=== PATIENT | male | born 1995 | race Two or more races ===

== ENCOUNTER 2018-11-21 13:08 | Emergency (ER) | payer SELFPAY ==
--- NOTE | 2018-11-21 14:17 | ED ---
Throat Pain/Nasal Congestion - HPI Summary HPI Summary: Pt is a 23 y/o M presenting to the ED with a chief complaint of dental pain first onset about 1 month ago when he broke his tooth. The pt states it has been painful intermittently but the pain has increased over the last couple of days, and Tylenol has not been working. He states cold foods bother his tooth but hot foods do not, and he sometimes gets a bad taste in his mouth. He denies any fevers. They have an appt set up in a couple of weeks to get the tooth pulled, but if it is infected they will not pull it. No fever chills, no drooling The pt does not take any medications and has no known drug allergies. He smokes cigarettes very occasionally, and does not drink alcohol or use any recreational drugs. - History of Current Complaint Chief Complaint: EDDentalPain Time Seen by Provider: 11/21/18 14:07 Hx Obtained From: Patient Onset/Duration: Gradual Onset, Lasting Weeks, Still Present Severity: Moderate - Allergies/Home Medications Allergies/Adverse Reactions: Allergies Allergy/AdvReac Type Severity Reaction Status Date / Time No Known Allergies Allergy Verified 11/21/18 13:25 PMH/Surg Hx/FS Hx/Imm Hx Previously Healthy: Yes Endocrine/Hematology History: Denies: Hx Diabetes Cardiovascular History: Denies: Hx Hypertension Infectious Disease History: No Infectious Disease History: Denies: Traveled Outside the [place] in Last 30 Days - Family History Known Family History: Negative: Cardiac Disease - Social History Lives: With Family Hx Substance Use: No Substance Use Type: Reports: None Hx Tobacco Use: Yes Smoking Status (MU): Smoker, Current Status Unknown - pt smokes very occasionally Review of Systems Positive: Fever Positive: Dental Pain All Other Systems Reviewed And Are Negative: Yes Physical Exam - Summary Physical Exam Summary: Vital Signs Reviewed: Yes A+Ox3, no distress Eyes: Conjunctiva Clear ENT: Hearing grossly normal, TM x 2 clear, mmmoist no exudate dental: + large cavity with dental fracture #18 + TTP, no drainage, + mild erythema at gumline neck: supple, no LA Respiratory: Positive: No respiratory distress, No accessory muscle use Cardiovascular: skin color reflect adequate perfusion Musculoskeletal Exam: FRIAS x 4 without difficulty Neurological: Positive: Alert, ambulatory without difficulty Psychological: Positive: Normal Response To Family Skin: Positive: no rash, no ecchymosis Triage Information Reviewed: Yes Vital Signs On Initial Exam: Initial Vitals Temp Pulse Resp BP Pulse Ox 98.8 F 57 20 117/74 99 11/21/18 13:10 11/21/18 13:10 11/21/18 13:10 11/21/18 13:10 11/21/18 13:10 Vital Signs Reviewed: Yes Diagnostics - Vital Signs Vital Signs Temp Pulse Resp BP Pulse Ox 11/21/18 13:10 98.8 F 57 20 117/74 99 - Laboratory Lab Statement: Any lab studies that have been ordered have been reviewed, and results considered in the medical decision making process. EENT Course/Dx - Course Course Of Treatment: Pt presents to with dental pain. Pt broke tooth approx 2 month ago -Pt with progressive pain x 5 days - concerned infection. Will start abx, periodex, topical lidocaine, motrin/apap. pt without insurance- urgent RX given. pt referred to physician referral center. return precautions - Diagnoses Provider Diagnoses: Pain, dental Discharge - Sign-Out/Discharge Documenting (check all that apply): Patient Departure Patient Received Moderate/Deep Sedation with Procedure: No - Discharge Plan Condition: Stable Disposition: HOME Prescriptions: Amoxicillin/Clavulanate TAB* [Augmentin TAB 875*] 875 mg PO BID #20 tab Chlorhexidine Gluconate [Peridex] 15 ml SWISH SPIT Q6HR PRN #150 ml PRN Reason: dental pain Lidocaine 2% VISCOUS* 5 ml TOPICAL Q6HR PRN #1 [id number] PRN Reason: dental pain Patient Education Materials: Toothache (ED) Referrals: [facility] [Outside] Additional Instructions: - Okay to alternate ibuprofen (Advil, Motrin)600mg and Tylenol (acetaminophen) 1000mg every 3 hours for pain. Take with food. Do NOT take for more than 4-5 days -Swish and spit with warm salt water or the prescription medication4 times a day -Take antibiotics as prescribed until gone - Okay to use over the counter Amisol or the prescription medication as prescribed for discomfort - do not use more than 4 times a day -Keep your dental appointment as scheduled . If you have any concerns - fevers, swelling inside your mouth or any other concerns, contact your dentist or return to the emergency department - Billing Disposition and Condition Condition: STABLE Disposition: Home - Attestation Statements Document Initiated by Michele: Yes Documenting Scribe: Kiya Aparicio Provider For Whom Scribe is Documenting (Include Credential): Keara Willett MD. Scribe Attestation: Kiya Tristan, scribed for Keara Willett MD. on 11/21/18 at 1838. Scribe Documentation Reviewed: Yes Provider Attestation: The documentation as recorded by the scribe, Kiya Aparicio accurately reflects the service I personally performed and the decisions made by , Keara Willett MD. Status of Scribe Document: Viewed
[2018-11-21 14:35] VITALS: BP 106/68
== END 2018-11-21 14:34 | disposition home or self-care (01) ==
LOC: ED 13:08
DX: K08.89 Other specified disorders of teeth and supporting structures (principal); F17.290 Nicotine dependence, other tobacco product, uncomplicated
CPT/HCPCS: 99282

== ENCOUNTER 2018-11-26 19:58 | Emergency (ER) | payer SELFPAY ==
[2018-11-26 20:14] VITALS: BP 109/72
--- NOTE | 2018-11-26 20:47 | UC ---
Lower Extremity/Ankle HPI - HPI Summary HPI Summary: Pt is 23 y/o otherwise healthy male who presents with left great toe pain after tripping over a baby gate just prior to arrival. He has discrete pain at the medial proximal left great toe. Denies numbness, weakness, tingling. Denies fevers, chills, chest pain. No other complaints at this time. - History of Current Complaint Chief Complaint: UCLowerExtremity Stated Complaint: LEFT BIG TOE INJURY Time Seen by Provider: 11/26/18 20:06 Hx Obtained From: Patient Onset/Duration: Sudden Onset Severity Initially: Moderate Severity Currently: Moderate Pain Intensity: 6 Pain Scale Used: 0-10 Numeric Aggravating Factor(s): Ambulation Alleviating Factor(s): Nothing Able to Bear Weight: Yes - with pain - Allergies/Home Medications Allergies/Adverse Reactions: Allergies Allergy/AdvReac Type Severity Reaction Status Date / Time No Known Allergies Allergy Verified 11/26/18 20:14 PMH/Surg Hx/FS Hx/Imm Hx Previously Healthy: Yes - Surgical History Surgical History: None - Family History Known Family History: Positive: Non-Contributory Negative: Cardiac Disease - Social History Alcohol Use: None Substance Use Type: None Smoking Status (MU): Current Some Day Smoker Review of Systems All Other Systems Reviewed And Are Negative: Yes Constitutional: Negative: Fever, Chills Cardiovascular: Negative: Chest Pain Gastrointestinal: Negative: Vomiting, Nausea Musculoskeletal: Positive: Arthralgia - Left great toe, Edema Physical Exam Triage Information Reviewed: Yes Appearance: Well-Appearing, No Pain Distress Vital Signs: Initial Vital Signs Temp 98.6 F 11/26/18 20:09 Pulse 76 11/26/18 20:09 Resp 16 11/26/18 20:09 BP 109/72 11/26/18 20:09 Pulse Ox 98 11/26/18 20:09 Vital Signs Reviewed: Yes Eye Exam: Normal Eyes: Positive: Conjunctiva Clear ENT Exam: Normal ENT: Positive: Normal ENT inspection Respiratory Exam: Normal Respiratory: Positive: Lungs clear, Normal breath sounds Cardiovascular: Positive: RRR, No Murmur Musculoskeletal Exam: Normal Musculoskeletal: Positive: Strength Intact, ROM Intact, Other: - Tenderness with palpation at medial proximal phalanx of left great toe. No erythema, ecchymosis, edema. Neurological Exam: Normal Neurological: Positive: Alert, Muscle Tone Normal Psychological Exam: Normal Skin Exam: Normal Procedures - Splinting Left toe Location: Left great toe Pre-Made Type: post-op shoe Splint: orlin tape left great and second toes Pre-Proc Neuro Vasc Exam: normal Post-Proc Neuro Vasc Exam: normal, unchanged from pre-exam Diagnostics - Radiology L great toe Radiology Interpretation Completed By: ED Physician - small avulsion fracture Lower Extremity Course/Dx - Course Course Of Treatment: 23 y/o male with acute pain of left great toe after tripping. X-ray confirms fracture of proximal phalanx of left great toe. Pt left great and second toes orlin tape and provided with post-op shoe, NV intact. Discharged home to control pain with Tylenol and ibuprofen. - Differential Dx/Diagnosis Differential Diagnosis/HQI/PQRI: Contusion, Fracture (Closed), Sprain, Strain Provider Diagnosis: Fracture of left great toe Discharge - Sign-Out/Discharge Documenting (check all that apply): Patient Departure All imaging exams completed and their final reports reviewed: Yes - Discharge Plan Condition: Improved Disposition: HOME Patient Education Materials: Toe Fracture (ED) Referrals: Joana Hernandez MD [Medical Doctor] - Chato Hutchins MD [Primary Care Provider] - Additional Instructions: You can ice the left toe, 20 mins on, 30 mins off as often as you want. Alternate Tylenol and ibuprofen for pain. REST is very important! If you are still having pain after 2 weeks, follow up with orthopedics. - Billing Disposition and Condition Condition: IMPROVED Disposition: Home - Attestation Statements Document Initiated by Isamar: Yes Documenting Scribe: PRUDENCIO Diaz Provider For Whom Isamar is Documenting (Include Credential): Dr. Xie Scribe Attestation: Azalea, PRUDENCIO Diaz, scribed for Dr. Xie on 11/26/18 at 2156. Scribe Documentation Reviewed: Yes Provider Attestation: The documentation as recorded by the isamar, PRUDENCIO Diaz accurately reflects the service I personally performed and the decisions made by , Dr. Xie Status of Scribe Document: Viewed
== END 2018-11-26 20:51 | disposition home or self-care (01) ==
LOC: UCEAST 19:58
DX: S92.412A Displaced fracture of proximal phalanx of left great toe, initial encounter for closed fracture (principal); W22.8XXA Striking against or struck by other objects, initial encounter; Y92.9 Unspecified place or not applicable; F17.210 Nicotine dependence, cigarettes, uncomplicated
CPT/HCPCS: 99211; G0463